=== PATIENT | female | born 1980 | race Caucasian/White ===

== ENCOUNTER 2020-06-09 15:24 | Outpatient (CLI) | payer BC, SELFPAY ==
[2020-06-09 15:45] LABS: Hematocrit 41.6 % (37.0-47.0); Hemoglobin 13.9 g/dL (12.0-15.0)
[2020-06-09 15:59] LABS: Anion Gap 7 mmol/L (8-16); Blood Urea Nitrogen 23 mg/dL (7-17); Calcium 9.2 mg/dL (8.4-10.2); Carbon Dioxide 29 mmol/L (22-30); Chloride 100 mmol/L (98-107); Estimated Glomerular Filt Rate > 60; Glucose 125 mg/dL (65-105); Sodium 136 mmol/L (137-145)
== END 2020-06-09 15:25 | disposition home or self-care (01) ==
PROVIDERS: Anesthesiology; PCP Family Medicine; Visit Provider Obstetrics & Gynecology
DX: Z51.81 Encounter for therapeutic drug level monitoring (principal); N92.6 Irregular menstruation, unspecified
CPT/HCPCS: 36415; 80048; 85014; 85018

== ENCOUNTER 2020-06-16 00:44 | Outpatient (CLI) | payer BC, SELFPAY ==
[2020-06-16 18:38] LABS: SARS-CoV-2 RNA PCR Negative
== END 2020-06-16 00:45 | disposition home or self-care (01) ==
LOC: ANHCOVIDDT 00:45
PROVIDERS: PCP Family Medicine; Visit Provider Obstetrics & Gynecology
DX: Z01.812 Encounter for preprocedural laboratory examination (principal); Z20.828 Contact with and (suspected) exposure to other viral communicable diseases
CPT/HCPCS: 87635; C9803; U0003

== ENCOUNTER 2020-06-18 00:47 | Day surgery (SDC) | payer BC, SELFPAY ==
[2020-06-08 14:52] VITALS: BMI 19.6
--- NOTE | 2020-06-16 09:47 | PM.IMHP ---
H&P: HPI History of Present Illness Date/Time: 06/16/20 09:47 Chief complaint: irregular bleeding Narrative: Matilde Ang is a 39 year old female who is admitted for hysteroscopy dilatation curettage and manner. She has heavy periods with been refractory to medical therapy risks and benefits of the procedure were reviewed. She had all questions answered. She asked to proceed Review of Systems Review of Systems: All systems reviewed & are unremarkable except as noted in HPI and below PMFSH Social History Social History Smoking status: Never smoker Alcohol intake: current Drinks per week: 8 Spiritual care concerns: No Meds Home Medications and Allergies Home Medications Medication Instructions Recorded Confirmed Type norethindrone ac-eth estradiol 1 tablet PO DAILY 06/08/20 06/08/20 History [Microgestin 09/22 (21)] spironolactone 100 mg PO DAILY 06/08/20 06/08/20 History Allergies Allergy/AdvReac Type Severity Reaction Status Date / Time Cephalosporins Allergy Mild Hives Verified 06/08/20 14:54 cefadroxil Allergy Unknown Hives Verified 06/08/20 14:54 Exam Const: General: no acute distress Eyes: General: appearance normal, both eyes and all related structures Neck: Neck: supple and no JVD Thyroid: thyroid normal Resp: Effort & Inspection: normal respiratory effort Auscultation: clear to auscultation bilaterally Cardio: Rate: regular rate Rhythm: regular rhythm GI: Inspection: non-distended GI Palp: Yes Soft to palpation, No Tenderness to palpation present (GI) and No Guarding due to palpation present (GI) Auscultation: normal bowel sounds : General: Yes bladder normal to palpation External Female Exam: normal external appearance Speculum Exam - Vagina: normal vaginal discharge and No vaginal bleeding Speculum Exam - Cervix: nontender Bimanual exam- vagina & uterus: bladder normal to palpation and No Cervical tenderness present OB/external & speculum: No vaginal bleeding Skin: General skin exam: no rashes or lesions noted Extrem: General: normal to inspection and no edema Psych: Mental Status: mental status grossly normal Affect: normal affect Assessment and Plan Additional Plan impression: 6 of heavy bleeding refractory to medical therapy Plan: Hysteroscopy, dilatation curettage, endometrial ablation
--- NOTE | 2020-06-18 06:42 | WPDHPUPDATE1 ---
History and Physical Update Update Date/Time: 06/18/20 06:42 History and Physical has been reviewed, including an updated exam of the patient. There are NO changes in the patient's condition. Risks, benefits, and alternatives have been discussed and questions answered. Patient agrees to proceed with procedure.
[2020-06-18] MEDS: ACETAMINOPHEN 500 MG TABLET 1000 MG PO (07:28)
[2020-06-18] MEDS: LACTATED RINGERS 1,000 ML 30 ML IV CONT ×2 (07:30→09:22)
--- NOTE | 2020-06-18 07:53 | P.PNAN_ITS ---
Anes - Initial Pre Proc Eval Procedure: Operation Date: 06/18/20 09:00 Proposed Procedures p Hysteroscopy, Dilation and Curettage, Cat Endometrial Ablation - Mg Ceja MD Date/Time: 06/18/20 07:53 Surgeon: Mg Ceja MD Pre Op Diagnosis: irregular bleeding Patient Data Age: 39 Gender: F Height: 5 ft 5 in Weight: 52.95 kg Allergies Allergy/AdvReac Type Severity Reaction Status Date / Time Cephalosporins Allergy Mild Hives Verified 06/18/20 07:44 cefadroxil Allergy Unknown Hives Verified 06/18/20 07:44 Home Medications Medication Instructions Recorded Confirmed Type norethindrone ac-eth estradiol 1 tablet PO DAILY 06/08/20 06/08/20 History [Microgestin 09/22 (21)] spironolactone 100 mg PO DAILY 06/08/20 06/08/20 History hydrocodone-acetaminophen 1 tablet PO Q6H PRN #20 tablet 06/18/20 Rx Patient hx anesthesia problems: none Family hx anesthesia problems: none [facility] Surgical History Surgical History (Updated 06/18/20 @ 07:57 by Mg Mock MD) H/O breast augmentation Social History Social History Smoking status: Never smoker Alcohol intake: current Drinks per week: 8 Spiritual care concerns: No Anes - Eval Final PreProcedure Day of Procedure 06/18/20 07:53 Patient weight: normal Heart: regular rate and rhythm Lungs: clear to auscultation Airway: Mallampati scale class 1 Neurological: alert and oriented Last oral intake: >/= 8 hours ASA classification: I Emergent: no Anesthetic plan: proceed Anesthesia type and monitoring: general GIVS and standard monitoring Informed Consent: The patient's anesthetic plan and its attendant risks and benefits were discussed with the patient/family/POA. Questions were solicited and answers provided to the satisfaction of the patient/family/POA.
[2020-06-18] MEDS: KETOROLAC 30 MG/ML VIAL (*BKC) IV PUSH (09:15)
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
[2020-06-18 09:22] VITALS: BP 100/69; PULSE 83; RESP 16; O2SAT 96
--- NOTE | 2020-06-18 09:25 | SUR.OPER ---
Hysteroscopy Intake-100ml Output- 50ml
[2020-06-18] MEDS: ONDANSETRON INJ 4 MG/2 ML VIAL IV PUSH (09:29)
[2020-06-18] MEDS: fentaNYL CITRATE INJ (*CRX) 100 MCG/2 ML VIAL 25 MCG IV PUSH (09:43)
[2020-06-18 09:50] VITALS: BP 105/61; PULSE 86; RESP 18; O2SAT 100
[2020-06-18] MEDS: oxyCODONE HCL (*CRX) 5 MG TAB IR PO (10:02)
[2020-06-18 10:09] VITALS: BP 98/55; PULSE 75; RESP 18; O2SAT 100
== END 2020-06-18 10:40 | disposition home or self-care (01) ==
PROVIDERS: PCP Family Medicine; Visit Provider Obstetrics & Gynecology
PROC: 0U5B8ZZ Destruction of Endometrium, Via Natural or Artificial Opening Endoscopic (ICD-10-PCS; CPT 58563; principal; 2020-06-18 09:00)
DX: N93.9 Abnormal uterine and vaginal bleeding, unspecified (principal)
CPT/HCPCS: 58563; 88305; A9270; J1100; J1885; J2250; J2405; J2704; J3010; J7030; J7120

== ENCOUNTER 2021-07-27 08:27 | Outpatient (CLI) | payer BC, SELFPAY ==
--- NOTE | ~2021-07-27 | MM_ITS ---
EXAMINATION: MM scrn krystle implant BI w martha HISTORY: Screening mammogram TECHNIQUE: Craniocaudal and mediolateral oblique 3-D tomosynthesis images with implant displacement a nd synthetic 2-D images were generated. Craniocaudal and mediolateral oblique views of the breasts wi thout implant displacement were obtained using full field digital mammography. CAD analysis was submi tted and interpreted. COMPARISON: None, baseline BREAST PARENCHYMAL COMPOSITION: The breasts are heterogeneously dense, which may obscure small masses . FINDINGS: RIGHT BREAST: There is no evidence of suspicious mass, calcification, or architectural distortion to suggest malignancy. LEFT BREAST: An asymmetry is present in the subareolar aspect of the breast on the implant displaced mediolateral oblique view. IMPRESSION: 1. Left breast asymmetry. 2. Additional mammographic views and possible breast ultrasound are recommended. BI-RADS Category 0: Incomplete: Needs additional imaging evaluation. Reviewed, dictated and finalized at location A. SIT SPECIALIST IMPRESSION: 1. Left breast asymmetry. 2. Additional mammographic views and possible breast ultrasound are recommended . BI-RADS Category 0: Incomplete: Needs additional imaging evaluation.
== END 2021-07-27 08:28 | disposition home or self-care (01) ==
LOC: ANHIMG 08:29
PROVIDERS: PCP Nurse Practitioner Family; Visit Provider Obstetrics & Gynecology
DX: Z12.31 Encounter for screening mammogram for malignant neoplasm of breast (principal); R92.8 Other abnormal and inconclusive findings on diagnostic imaging of breast
CPT/HCPCS: 77063; 77067

== ENCOUNTER 2021-08-12 13:17 | Outpatient (CLI) | payer BC, SELFPAY ==
--- NOTE | ~2021-08-12 | US_ITS ---
CORRECTED REPORT MM diag krystle implant LT w martha added to report. 08/15/2021 EXAMINATION: US breast LT limited, MM diag krystle implant LT w martha HISTORY: Follow-up left breast asymmetry TECHNIQUE: Additional 3-D tomosynthesis images of the left breast were performed and synthetic 2-D images were generated. CAD analysis was submitted and interpreted. High resolution Limited left breast ultrasound was performed. COMPARISON: 07/27/2021 BREAST PARENCHYMAL COMPOSITION: Breast composed of scattered areas of fibroglandular density FINDINGS: MAMMOGRAPHIC FINDINGS: There are no suspicious masses, calcifications or architectural distortion in the left breast to suggest malignancy. ULTRASOUND: Limited left breast ultrasound: Normal heterogeneous echotexture without focal mass. IMPRESSION: 1. No evidence for malignancy in the left breast. 2. Routine yearly screening mammogram and regular clinical breast examination are recommended. BI-RADS Category 1: Negative Reviewed, dictated and finalized at location A. EL MECHANIC MTDD IMPRESSION: 1. No evidence for malignancy in the left breast. 2. Routine yearly screening mammogram and regular clinical breast examination a re recommended. BI-RADS Category 1: Negative
== END 2021-08-12 13:18 | disposition home or self-care (01) ==
LOC: ANHIMG 13:18
PROVIDERS: PCP Nurse Practitioner Family; Visit Provider Obstetrics & Gynecology
DX: R92.8 Other abnormal and inconclusive findings on diagnostic imaging of breast (principal)
CPT/HCPCS: 76642; 77061; 77065; G0279

== ENCOUNTER 2022-08-29 08:55 | Outpatient (CLI) | payer BC, SELFPAY ==
--- NOTE | ~2022-08-29 | MM_ITS ---
EXAMINATION: MM scrn krystle implant BI w martha HISTORY: Screening mammogram TECHNIQUE: Craniocaudal and mediolateral oblique 3-D tomosynthesis images with implant displacement a nd synthetic 2-D images were generated. Craniocaudal and mediolateral oblique views of the breasts wi thout implant displacement were obtained using full field digital mammography. CAD analysis was submi tted and interpreted. COMPARISON: 08/12/2021 diagnostic left mammogram and limited left breast ultrasound 07/23/2021 bilateral implant screening mammogram BREAST PARENCHYMAL COMPOSITION: The breasts are heterogeneously dense, which may obscure small masses . FINDINGS: Status post bilateral augmentation mammoplasty. There is no evidence of suspicious mass, ca lcification, or architectural distortion to suggest malignancy in either breast. There has been no lane spicious interval change. IMPRESSION: 1. No mammographic evidence of malignancy. 2. Recommend routine screening mammography in one year. BI-RADS Category 1: Negative Reviewed, dictated and finalized at location A. O EXPERIENCE EXPERT
== END 2022-08-29 08:56 | disposition home or self-care (01) ==
PROVIDERS: PCP Nurse Practitioner Family; Visit Provider Obstetrics & Gynecology
DX: Z12.31 Encounter for screening mammogram for malignant neoplasm of breast (principal)
CPT/HCPCS: 77063; 77067

== ENCOUNTER 2023-10-19 07:33 | Outpatient (CLI) | payer BC, SELFPAY ==
--- NOTE | ~2023-10-19 | MM_ITS ---
EXAMINATION: MM scrn krystle implant BI w martha HISTORY: Screening mammogram TECHNIQUE: Craniocaudal and mediolateral oblique 3-D tomosynthesis images with implant displacement a nd synthetic 2-D images were generated. Craniocaudal and mediolateral oblique views of the breasts wi thout implant displacement were obtained using full field digital mammography. CAD analysis was submi tted and interpreted. COMPARISON: 08/29/2022 bilateral implant screening mammogram 08/12/2021 diagnostic left implant mammogram and limited left breast ultrasound, reported negative 07/23/2021 bilateral implant screening mammogram BREAST PARENCHYMAL COMPOSITION: The breasts are heterogeneously dense, which may obscure small masses . FINDINGS: Status post bilateral augmentation mammoplasty. There is no evidence of suspicious mass, ca lcification, or architectural distortion to suggest malignancy in either breast. There has been no lane spicious interval change. IMPRESSION: 1. No mammographic evidence of malignancy. 2. Recommend routine screening mammography in one year. BI-RADS Category 1: Negative Reviewed, dictated and finalized at location B. MER MACHINE
== END 2023-10-19 07:34 | disposition home or self-care (01) ==
LOC: ANHIMG 07:36
PROVIDERS: PCP Nurse Practitioner Family; Visit Provider Obstetrics & Gynecology
DX: Z12.31 Encounter for screening mammogram for malignant neoplasm of breast (principal)
CPT/HCPCS: 77063; 77067

== ENCOUNTER 2023-10-20 14:41 | Emergency (ER) | payer BC, SELFPAY ==
[2023-10-20 14:51] VITALS: BP 114/64; PULSE 85; RESP 20; TEMP 36.7; O2SAT 97
--- NOTE | 2023-10-20 14:56 | ED.URI ---
HPI - URI/Sore Throat General Chief Complaint: Upper Respiratory Infection Stated Complaint: sorethroat Time Seen by Provider: 10/20/23 15:05 History of Present Illness HPI Narrative: 43 y/o female presented for c/o sore throat today. States she completed a course of abx starting 10/05/23 for strep. Denies any associated symptoms. States she is planning to be around people tonight and wants to know if she has strep again. Related Data Home Medications Medication Instructions Recorded Confirmed norethindrone acetate 1 mg-ethinyl 1 tablet PO DAILY 06/08/20 06/08/20 estradiol 20 mcg tablet (Microgestin) spironolactone 50 mg tablet 100 mg PO DAILY 06/08/20 06/08/20 Allergies Allergy/AdvReac Type Severity Reaction Status Date / Time Cephalosporins Allergy Mild Hives Verified 06/18/20 07:44 cefadroxil Allergy Unknown Hives Verified 06/18/20 07:44 Review of Systems Review of Systems: CONSTITUTIONAL: Denies body aches, fever, chills, or sweats. EYES: Denies visual changes, redness, or discharge. ENT: reports sore throat Denies rhinorrhea, congestion, or otalgia. CARDIOVASCULAR: Denies chest pain, palpitations, or edema. RESPIRATORY: Denies dyspnea. GASTROINTESTINAL: Denies abdominal pain, nausea, vomiting, or diarrhea. SKIN: Denies rash, itching, or wounds. MUSCULOSKELETAL: Denies back pain, joint pain, or myalgia. NEUROLOGIC: Denies headache [facility], [facility] Surgical History Surgical History H/O breast augmentation Social History Social History Smoking status: Never smoker Alcohol intake: current Drinks per week: 8 Spiritual care concerns: No Exam Narrative: GENERAL: well-appearing, no acute distress. EYES: conjunctivae clear ENT: Mucous membranes moist. TMs pearly thomson with normal light reflex bilaterally; no tragal tenderness. Oropharynx erythematous without lesions. Tonsils not enlarged and without exudate. No drooling, no hoarseness, no trismus, uvula midline. No tripod positioning, hot potato voice, or soft palate swelling. NECK: Supple. No lymphadenopathy CHEST: Clear to auscultation, breath sounds equal. No respiratory distress, speaks in full sentences. HEART: Regular rate and rhythm. No murmur heard. SKIN: Warm, dry, no rash. NEURO: Alert and oriented x3. Course Course Emergency Course: Patient is aware of diagnosis, understands and agrees to treatment plan. Anticipatory guidance given. Patient agrees to follow-up as directed and is aware of reasons to seek care at the emergency department. Portions of this record may have been created with voice recognition software Level of Care: Express Care Visit MDM - URI/Sore Throat MDM Narrative Medical decision making narrative: Neg strep result reviewed with pt. Advise supportive treatments. Patient is appropriate for outpatient treatment and follow-up. Differential Diagnosis Differential diagnosis: Likely upper respiratory infection, viral infection and pharyngitis Discharge Plan Discharge Clinical Impression: Pharyngitis Patient Disposition: Home, Self-Care Condition: Stable Instructions: Antibiotic Form, Pharyngitis (ED) Additional Instructions: Rapid strep swab was negative today You will be notified in a few days if the culture comes back positive for strep, and appropriate antibiotics will be called in at that time. if symptoms are due to a viral illness, it is not treated with antibiotics. Viral symptoms can be present for up to 10-14 days. Tylenol every 8 hours as needed for pain/fever Soft foods, cool liquids, warm tea. Gargle with warm saltwater twice a day. Chloraseptic spray and throat lozenges. Rest and stay hydrated. --Follow up with your PCP --Go to the ER immediately if you cannot swallow your saliva, trouble breathing/wheezing, throat swelling, pain is persistent and severe Prescrip
== END 2023-10-20 15:11 | disposition home or self-care (01) ==
PROVIDERS: Emergency Provider Nurse Practitioner Family; PCP Nurse Practitioner Family
DX: J02.9 Acute pharyngitis, unspecified (principal)
CPT/HCPCS: 87081; 87880; 99213; G0463

== ENCOUNTER 2024-11-10 15:34 | Outpatient (CLI) | payer BC, SELFPAY ==
--- NOTE | ~2024-11-10 | MM_ITS ---
EXAMINATION: MM scrn krystle implant BI w martha HISTORY: Screening mammogram TECHNIQUE: Craniocaudal and mediolateral oblique 3-D tomosynthesis images with implant displacement a nd synthetic 2-D images were generated. Craniocaudal and mediolateral oblique views of the breasts wi thout implant displacement were obtained using full field digital mammography. CAD analysis was submi tted and interpreted. COMPARISON: 10/19/2023, 08/29/2022, 07/27/2021 BREAST PARENCHYMAL COMPOSITION: The breasts are heterogeneously dense, which may obscure small masses . FINDINGS: There is no evidence of suspicious mass, calcification, or architectural distortion to sugg est malignancy in either breast. There has been no suspicious interval change. IMPRESSION: No mammographic evidence of malignancy. Recommend routine screening mammography in one year. BI-RADS Category 1: Negative Reviewed, dictated and finalized at [facility].
--- OUTSIDE RECORDS SUMMARY | 2024-11-10 18:14 | XMS_ITS | Referral Summary ---
Author Organization [facility] Address [address] [place] [address] Care Team Providers Care Traveling Passenger Agent Name Role Phone Carroll Killian MD Primary Care Provider [phone] Source Comments [facility],non-owned Affiliates and Associated Physician Practices is amultiple site organization consisting of ambulatory clinics and hospital sitesin [place], [place], [place] and [place]. This disclosure is being madepursuant to the Care Everywhere program and may not contain all information available regarding this patient. Last updated 18.[facility] Social History Tobacco Use Types Packs/Day Years Used Date Smoking Tobacco: Never Assessed Sex and Gender Information Value Date Recorded Sex Assigned at Not on file Gender Identity Not on file Sexual Orientation Not on file Plan of Treatment Not on file Care Teams Traveling Passenger Agent Relationship Specialty Start Date End Date Carroll Killian MD [address] [place] [address] PCP - General 12/19/16
--- OUTSIDE RECORDS SUMMARY | 2024-11-10 18:14 | XMS_ITS | Data Portability ---
Author Organization [facility], Main Office Address [address] [place] [address] Assessment Encounter Date Assessment Date Assessment LastModified by Organization Details LastModified Time 03/14/2023 03/14/2023 Cscope- age 46 Mammogram- ordered by AUDIO INSTALLER WWE- AUDIO INSTALLER- Felicita Guo Call office if worse, ER if life threatening illness RTC 1 year and PRN She voices understanding of plan and agrees Not available 03/13/2023 19:32:18 Plan of Treatment Reminders Order Date Submit Date Provider Last Modified By Organization Details Last Modified Time Details Appointments None recorded. Lab lipid panel, serum 2022 023 [facility], 2022 [address], [address], [place], [address], 3 13:12:54 HbA1c (hemoglobin A1c), blood 2022 023 [facility], 2022 Aman Gonzalez, [address], [place], [address], 3 13:12:54 CBC w/ auto diff 2022 023 [facility], 2022 Aman Gonzalez, [address], [place], [address], 3 13:12:54 CMP, serum or plasma 2022 023 [facility], 2022 Aman Gonzalez, [address], [place], [address], 3 13:12:54 Referral None recorded. Procedures None recorded. Surgeries None recorded. Imaging None recorded. Medication Orders ciprofloxac in 500 mg tablet 2022 023 [id number], [address] [facility], [place], [place], [id number], 11:00:33 Patient TargetsNo targets recorded. Patient InstructionsNo instructions recorded. Reason for Referral None Reported. Results Created Date Observation Date Name Description Value Unit Range Abnormal Flag Note LastModifiedBy Organization Detail LastModifiedTime 07/27/20 21 07/27/2021 MAMMO , scree kevin, digit al, bilat eral No observ ation record ed. [id number] [place] [address], [address], 11/01/2022 23:12:04 08/12/20 21 08/12/2021 , natalya medellin No observ ation record ed. [id number] [place] [address], [place], [address], 11/01/2022 23:12:04 08/17/20 21 08/12/2021 , natalya medellin No observ ation record ed. [email or web address].[id number] [place] [address], [place], [address], 11/01/2022 23:12:04 08/29/20 22 08/29/2022 MAMMO , scree kevin, digit al, bilat eral No observ ation record ed. MIGRATION.[id number] [place] [address], [address], 11/01/2022 23:12:04 10/19/19 24 10/19/2023 MAMMO , scree kevin, digit al, bilat eral No observ ation record ed. [email or web address] [address], [address], 12/13/2023 09:28:55 Result Notes None recorded. Problems Name Problem SNOMED Code Status Onset Date Resolution Date Notes Provider Name and Address Organization Details Recorded Time Acne [id number] Active 03/13/20 FRANCISCO Laird [address] [facility], [address], [place], [address], [place] [facility] 03/13/2023 19:31:52 Problem Notes None recorded. Procedures Surgical History Date Name Laterality Status Provider Name and Address Organization Details Recorded Time augmentation mammoplasty completed Not Available [facility] 11/01/2022 23:05:33 Imaging Results Imaging Date Name Status LastModified by Organiz ation Details LastModified Time 08/29/2022 MAMMO, screening, digital, bilateral completed [id number] [address], [address], 11/01/2022 23:12:04 07/27/2021 MAMMO, screening, digital, bilateral completed [id number] [address], [address], 11/01/2022 23:12:04 08/12/2021 US, breast completed MIGRATION.[id number] [address] [place] [address], [address], 11/01/2022 23:12:04 08/12/2021 US, breast completed MIGRATION.[id number] [address] [place] [address], [address], 11/01/2022 23:12:04 10/19/2023 MAMMO, screening, digital, bilateral completed [email or web address] [address] [place] [address], [address], 12/13/2023 09:28:55 Procedure Notes None recorded. Medical Equipment None Reported. Medications Name Sig Start Date Stop Date Status Note LastModified by Organization Details LastModified Time binaxnow cov kit home kehinde 03/14 completed Not Available Not Available Not Available ciprofloxac in 500 mg tablet TAKE 1 TABLET BY MOUTH EVERY 12 HOURS FOR 7 DAYS active Not Available Not Available No t Available spironolact one 50 mg tablet TAKE 2 TABLETS BY MOUTH DAILY active Not Available Not Available No t Available Microgestin 09/22 (21) 1 mg-20 mcg tablet TK 1 T PO QD 03/02 completed Not Available Not Available Not Available hydrocodone 5 mg-acetamin ophen 300 mg tablet TK 1 T PO Q 6 H PRN 03/02 completed Not Available Not Available Not Available BinaxNOW COVID-19 Ag Self Test kit TEST DIRECTED TODAY 03/14 completed Not Available Not Available Not Available Vitals Date Recorded Body mass index (BMI) Body height Oxygen saturation Oxygen saturation in Arterial blood by Pulse oximetry Heart rate Body temperature Body weight Systolic blood pressure Diastolic blood pressure Provider Name and Address Organization Details Last Updated DateTime 1 21.3 kg/m2 162.56 cm 96 % 96 % 67 /min 98.5 [degF] 31391.4 5 g 100 mm[Hg] 60 mm[Hg] Not Available [facility] 3 23:06:42 Date Recorded Body mass index (BMI) Body height Oxygen saturation Oxygen saturation in Arterial blood by Pulse oximetry Heart rate Body temperature Body weight Systolic blood pressure Diastolic blood pressure Provider Name and Address Organization Details Last Updated DateTime 2 21.3 kg/m2 162.56 cm 98 % 98 % 70 /min 97.6 [degF] 01243.4 5 g 116 mm[Hg] 72 mm[Hg] Not Available [facility] 3 23:06:42 Date Recorded Body weight Body mass index (BMI) Body height Body temperature Heart rate Oxygen saturation Oxygen saturation in Arterial blood by Pulse oximetry Systolic blood pressure Diastolic blood pressure Provider Name and Address Organization Details Last Updated DateTime 3 41513.2 3 g 21.8 kg/m2 162.56 cm 97.8 [degF] 68 /min 98 % 98 % 118 mm[Hg] 74 mm[Hg] Abena Armas, MAXWELL MALDONADO - Aubree MA [employer] 3 10:36:56 Social History Question Answer Notes LastModified by Organizat ion Details LastModified Time Tobacco Smoking Status Never Smoker Not Available [facility] 11/01/2022 23:05:03 Do You Have An Advance Directive? Yes [id number].70425 [id number] Information not available 11/01/2022 What Is Your Level Of Alcohol Consumption? Occasional MIGRATION.15200 97415 Information not available 11/01/2022 Do You Wear A Helmet When Biking? No MIGRATION.76987 54259 Information not available 11/01/2022 What Is Your Level Of Caffeine Consumption? Occasional MIGRATION.13418 65787 Information not available 11/01/2022 How Much Tobacco Do You Chew? None MIGRATION.00275 68197 Information not available 11/01/2022 In The 14 Days Before Symptom Onset, Have You Had Close Contact With A Laboratory-confi rmed COVID-19 While That Case Was Ill? No MIGRATION.92765 10338 Information not available 11/01/2022 In The 14 Days Before Symptom Onset, Have You Had Close Contact With A Person Who Is Under Investigation For COVID-19 While That Person Was Ill? No MIGRATION.57235 93076 Information not available 11/01/2022 What Type Of Diet Are You Following? REGULAR MIGRATION.49955 23674 Information not available 11/01/2022 Which Illicit Or Recreational Drugs Have You Used? None MIGRATION.97695 10353 Information not available 11/01/2022 Do You Or Have You Ever Used E-cigarettes Or Vape? 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 No MIGRATION.50809 69845 Information not available 11/01/2022 What Is The Fluoride Status Of Your Home? Unknown MIGRATION.20311 16734 Information not available 11/01/2022 Are There Any Guns Present In Your Home? Yes MIGRATION.10078 93340 Information not available 11/01/2022 Do You Use Insect Repellent Routinely? Yes MIGRATION.80924 34884 Information not available 11/01/2022 Where Do You Live? [place]House MIGRATION.78592 58712 Information not available 11/01/2022 What Was The Date Of Your Most Recent Tobacco Screening? 03/14/2023 [email or web address] Information not available 03/14/2023 Do You Have Any Pets? No MIGRATION.16703 53946 Information not available 11/01/2022 Do You Use Your Seat Belt Or Car Seat Routinely? Yes MIGRATION.79397 63287 Information not available 11/01/2022 Do You Have Smoke And Carbon Monoxide Detectors In Your Home? Yes MIGRATION.81188 70660 Information not available 11/01/2022 Are You Passively Exposed To Smoke? No MIGRATION.70672 94053 Information not available 11/01/2022 Do You Or Have You Ever Used Smokeless Tobacco? Never Used Smokeless Tobacco MIGRATION.76166 66081 Information not available 11/01/2022 Are There Any Smokers In Your House? No MIGRATION.58326 11760 Information not available 11/01/2022 How Much Tobacco Do You Smoke? No MIGRATION.99567 37501 Information not available 11/01/2022 Do You Feel Stressed (tense, Restless, Nervous, Or Anxious, Or Unable To Sleep At Night)? [id number] MIGRATION.46461 30511 Information not available 11/01/2022 Do You Use Any Illicit Or Recreational Drugs? No MIGRATION.78477 43902 Information not available 11/01/2022 Do You Use Sunscreen Routinely? Yes MIGRATION.47937 98182 Information not available 11/01/2022 Have You Recently Traveled Abroad? No MIGRATION.40110 88342 Information not available 11/01/2022 Sex: Unknown Functional Status Question Answer Note LastModified by [employer] ion Details LastModified Time What is your exercise level? Occasional [id number] 26 Information not available 11/01/2022 Mental Status None recorded. Family History Relationship Description Onset Age of this Age Resolved Age Notes LastModified by Organization Details LastModified Time Father No current problems or disability [id number] Not available 11/01/2022 23:05:36 Mother No current problems or disability MIGRATION.[id number] Not available 11/01/2022 23:05:36 Medical History Condition Response NERVE DISEASE N BLINDNESS N RHEUMATIC FEVER N KIDNEY STONES N BLADDER PROBLEMS N MRSA N OTHER # 1 N POLIO N LUNG DISEASE/DISORDER N COPD N RADIATION / CHEMOTHERAPY N Other # 2 N BLOOD DISEASES N EAR OR HEARING PROBLEMS N MUMPS N BOWEL PROBLEMS N DEPRESSION (INCLUDING POST ) N STROKE/TIA N ULCERS N BENIGN PROSTATIC HYPERPLASIA N MEASLES N MYOCARDIAL INFARCTION N OBESITY N GERD/NAUSEA N ANEURYSM N URINARY/BLADDER/KIDNEY PROBLEMS N CORONARY ARTERY DISEASE (CAD) N ADDICTION CONCERNS N ENDOMETRIOSIS N Impotence N USE OF BLOOD THINNERS N SKIN PROBLEMS N GASTROINTESTINAL DISORDER N PERIPHERAL VASCULAR DISEASE N MUSCLE,JOINT OR BONE PROBLEMS N GASTROINTESTINAL BLEEDING N BLOOD CLOTS N ASTHMA N CATARACTS N ERECTILE DYSFUNCTION N VARICOSITIES N GI PROBLEMS N Low Testosterone N INFERTILITY N AIDS/HIV N CHEMOTHERAPY / RADIATION N LIVER DISEASE N MALE HYPOGONADISM N HYPERTENSION N Deficiency N TOURETTE'S N ANXIETY DISORDER N BLOOD TRANSFUSION N ANEMIA/BLOOD DISORDER N CHRONIC EAR INFECTIONS N BRONCHITIS N TUBERCULOSIS N GLAUCOMA N FOOT PROBLEM N DIVERTICULITIS N SLEEP APNEA N CHICKENPOX N INFECTIOUS DISEASE N HEART ARRHYTHMIA N PROSTATE N INSOMNIA N HIGH CHOLESTEROL / HYPERLIPIDEMIA N HYPERTHYROIDISM N EYE PROBLEMS N EDEMA N CHRONIC PAIN SYNDROME N HYPOTHYROIDISM N CAROTID BLOCKAGE N CONSTIPATION N BACK / NECK PROBLEMS N HAVE YOU BEEN HOSPITALIZED OR SEEN IN [facility] ER IN THE PAST YEAR ? N ATHEROSCLEROSIS N BREAST PROBLEMS N DIALYSIS N ECZEMA N OSTEOPOROSIS N ARTHRITIS N NO SIGNIFICANT PAST MEDICAL HISTORY N APPENDICITIS N DIABETES, TYPE N BAD TEETH N ENT N HEARTBURN / REFLUX N AUTISM SPECTRUM DISORDER (ASD) N HEPATITIS / LIVER DISEASE N GOUT N SLEEP DISORDER N ALZHEIMER'S DISEASE N Brain Problems N HERPES N DEMENTIA N HEADACHES/MIGRAINES N SEIZURES/EPILEPSY N VASCULAR DISEASE N PACEMAKER N Blood Disorder N DIZZINESS N HEART DISEASE/HEART PROBLEMS N KIDNEY DISEASE N MULTIPLE SCLEROSIS N CARDIAC ARRHYTHMIA N CANCER: SPECIFY N ATRIAL FIBRILLATION N Gall Stones N PULMONARY EMBOLISM N AUTOIMMUNE DISEASE N Gynecological History Statement/Question Response Menses Monthly Y Current Control Method Partner Vas ectomy Age at Menarche 14 Date of LMP 02/21/2021 Obstetrics History GPAL:G 2 P 0 2 0 2 Type Value Multiple Births 0 Premature 2 Living 2 Total 2 Past Encounters Encounter ID Performer Location Encounter Start Date Encounter Closed Date Diagnosis/Indication Diagnosis SNOMED-CT Code Diagnosis ICD10 Code Diagnosis Note [id number] [facility] [place] [address] 03/02/2021 00:00:00 03/02/2021 13:25:52 [id number] [facility] Internal Med [address] [place] [address] 03/08/2022 00:00:00 03/08/2022 14:14:01 [id number] FRANCISCO Laird [facility] Internal Med [address] [place] [address] 03/14/2023 10:29:32 03/14/2023 11:01:08 Adult health examination 585163665 Z00.00 Acne 81698845 L70.9 follows dermatolog y- Dr. Linda Kramer spironolahawk tone Diabetes m ellitus screening 781909822 Z13.1 Cholesterol screening 27 2325301 Z13.220 Depression screening 171 628499 Z13.31 Travel 235788818 Z76.89 will give her a script of cipro in case she needs it for diarrhea while traveling Health Concerns Section Related Observation LastModified by Organization Detai ls LastModified Time None Recorded Concern Status LastModified by Organization Details LastModified Time None Recorded Advance Directives Directive Y: Payers Encounter Date Sequence Insurance Name Policy Number Policy Barclay Covered Member ID Barclay Member ID Guarantor Name 03/14/2023 1 [place] [id number] Dima Ang [id number] Matilde Ashia Notes Date Note Type Note Provider Name and Address Organization Details Recorded Time 03/14/2023 text/html Matilde presents today for annual wellness exam. Overall she feels well and denies any complaints. She is traveling to [place] in a couple of weeks, last time she was there she did get some travelers diarrhea, is requesting a script to take with her. She report this is an all inclusive trip so she will be drinking alcohol during her trip. Carolyn Ellis, DIRECTOR ENGINEERING-C [address] [facility], [place], [address], [facility] Voice Assist 03/14/2023 11:17:35 OBGyn Episode No OBEpisode recorded.
--- OUTSIDE RECORDS SUMMARY | 2024-11-10 18:14 | XMS_ITS | Referral Summary ---
Author Organization [facility] [address] [facility] Address [address] [place] [address] Care Team Providers Care Presser All Around Name Role Phone Carolyn Ellis NP Primary Care Provider [phone] Allergies Active Allergy Reactions Criticality Noted Date Comments Cefadroxil Rash Medium 10/31/2023 Medications spironolactone (ALDACTONE) 50 mg tablet Take 2 tablets (100 mg total) by mouth daily 07/15/2023 Active lidocaine viscous (XYLOCAINE) 2 % solutionIndicat ions:gargle 5 ml PO every 6 hours for throat pain Apply to lesions every six hours as needed for discomfort. Do not exceed maximum dose of of 4 times daily. 100 mL 10/29/2023 Active Active Problems Problem Noted Date Diagnosed Date Strep pharyngitis 10/05/2023 Assessment & Plan (10/05/2023 8:53 AM RAW STOCK DYEING MACHINE TENDER): VSS, NAD, lungs ctab Hx of recurrent strep when younger Rapid strep + Rapid covid, flu negative Symptom duration last night Augmentin Warm salt water gargles Tylenol (acetaminophen) or Advil/Motin (ibuprofen) as needed per package directions for aches/pains. CDC recommendations for return to work/school: at least 12 hours on antibiotics and no fever Change your toothbrush on the third day you are on antibiotics. Avoid sharing food/drinks and close contact until you are less contagious. Frequent warm or cool liquids can be soothing. Try soups or popsicles for comfort. If you are not improving or worsening in the next 3-5 days you must RETURN to the clinic, go to your PCP, or Urgent Care/ER to be SEEN and reevaluated. No further prescriptions or refills will be given by phone without another evaluation. Acne 03/13/2023 Social History Tobacco Use Types Packs/Day Years Used Date Smoking Tobacco: Never Assessed Comments Unknown Sex and Gender Information Value Date Recorded Sex Assigned at Not on file Legal Sex Female 8:08 AM RAW STOCK DYEING MACHINE TENDER Gender Identity Not on file Sexual Orientation Not on file Last Filed Vital Signs Vital Sign Reading Time Taken Comments Blood Pressure 96/58 10/29/2023 7:32 PM RAW STOCK DYEING MACHINE TENDER Pulse 101 10/29/2023 7:43 PM RAW STOCK DYEING MACHINE TENDER Temperature 38 C (100.4 F) 10/29/2023 7:32 PM RAW STOCK DYEING MACHINE TENDER Respiratory Rate 20 10/29/2023 7:32 PM RAW STOCK DYEING MACHINE TENDER Oxygen Saturation 97% 10/29/2023 7:43 PM RAW STOCK DYEING MACHINE TENDER Inhaled Oxygen Concentration - - Weight 56.7 kg (125 lb) 10/29/2023 7:32 PM RAW STOCK DYEING MACHINE TENDER Height 165.1 cm (5' 5 ) 10/29/2023 7:32 PM RAW STOCK DYEING MACHINE TENDER Body Mass Index 20.8 10/29/2023 7:32 PM RAW STOCK DYEING MACHINE TENDER Plan of Treatment Not on file Insurance [facility] Care Teams Presser All Around Relationship Specialty Start Date End Date Carolyn Ellis NP PCP - General Nurse Practitioner 10/05/23
--- OUTSIDE RECORDS SUMMARY | 2024-11-10 18:14 | XMS_ITS | Encounter Summary ---
Author Organization [facility] Address [address] [place] [address] Care Team Providers Care Housekeeping Manager Name Role Phone Carroll Killian MD Primary Care Provider [phone] Encounter Details Date Type Department Care Team (Late st Contact Info) Description 02/27/2019 Lab Requisition [facility] [address] [facility] [place] [address] Linda Mani MD [address] [facility] [address] [place] [address] Social History Tobacco Use Types Packs/Day Years Used Date Smoking Tobacco: Never Assessed Sex and Gender Information Value Date Recorded Sex Assigned at Not on file Gender Identity Not on file Sexual Orientation Not on file documented as of this encounter Plan of Treatment Not on file documented as of this encounter Procedures Procedure Name Priority Date/Time Associated Diagnosis Comments DERMATOPATHOLOGY Routine 02/26/2019 12:0 0 AM CDT documented in this encounter Results * DERMATOPATHOLOGY (02/26/2019 12:00 AM CDT) Case Report Dermatopathology Report Case: [id number] Authorizing Provider: Linda Main MD Collected: 02/26/2019 12:00 AM Pathologist: Nathaly Kemp MD Received: 02/27/2019 07:21 AM Specimen: Skin, right back 9 1:40 PM CDT DERMATOPATHOLOGY LABORATORY Final Diagnosis Specimen A. SKIN, right back: LENTIGINOUS MELANOCYTIC NEVUS, COMPOUND TYPE, IRRITATED (COMPOUND MELANOCYTIC NEVUS WITH ARCHITECTURAL DISORDER) (D22.5) 9 1:40 PM CDT DERMATOPATHOLOGY LABORATORY Clinical History R/O Dexter nevus R/O atypia, irregular color 1:40 PM CDT DERMATOPATHOLOGY LABORATORY Gross Description Specimen A: Received is one formalin filled container labeled with the patient's name and designated right back. The specimen consists of a shave biopsy measuring 8x7x1 mm. Jar 0. 1:40 PM CDT DERMATOPATHOLOGY LABORATORY Microscopic Description Specimen A. SKIN, right back: This is a compound nevus. There is melanin pigment in the stratum corneum. There is architectural disorder characterized by a lentiginous proliferation of melanocytes between irregular nevus nests of cells along the dermal epidermal junction. There is underlying fibroplasia of the papillary dermis. The intradermal component is bland in appearance and matures with depth. (Compound Jose's Nevus or Compound Dysplastic Nevus) 1:40 PM CDT DERMATOPATHOLOGY LABORATORY Disclaimer An external and internal positive and negative controls are appropriate for the histochemical, immunohistochemical and immunofluorescence stain(s) in this case (if any), except where stated explicitly. The performance characteristics of the stain(s) cited in this report were developed and its performance characteristic determined by the Dermatopathology Laboratory at [facility], directed by Dr. Tino Kemp. These tests need not be, and therefore are not, approved by the [place] Food and Drug Administration. The tests are used for clinical purposes. Billing Codes Specimen Charges Stain Charges 41632 1 1:40 PM CDT DERMATOPATHOLOGY LABORATORY Embedded Images 1:40 PM CDT DERMATOPATHOLOGY LABORATORY Pathology/Cytolog y TISSUE SPECIMEN FROM SKIN / Unknown 02/26/2019 02/27/2019 7:21 AM CDT Linda Main MD LAB - PATHOLOGY/CYTO LOGY ORDERABLES DERMATOPATHOLOGY LABORATORY [facility] - Department of Dermatology [facility] [facility] 5th [address] [place], [place] [id number] [place] [address] documented in this encounter Visit Diagnoses Not on filedocumented in this encounter Care Teams Housekeeping Manager Relationship Specialty Start Date End Date Carroll Killian MD [address] [place] [address] PCP - General 12/19/16 documented as of this encounter
--- OUTSIDE RECORDS SUMMARY | 2024-11-10 18:14 | XMS_ITS | Clinical Summary ---
Author Organization [facility] Address [address] [facility] [place] [address] Care Team Providers Care Occupational Therapist Assistants Name Role Phone Carroll Killian MD Primary Care Provider [phone] Source Comments [facility],non-owned Affiliates and Associated Physician Practices is amultiple site organization consisting of ambulatory clinics and hospital sitesin [place], [place], [place] and [place]. This disclosure is being madepursuant to the Care Everywhere program and may not contain all information available regarding this patient. Last updated 18.[facility] docplanner Social History Tobacco Use Types Packs/Day Years Used Date Smoking Tobacco: Never Assessed Sex and Gender Information Value Date Recorded Sex Assigned at Not on file Gender Identity Not on file Sexual Orientation Not on file Plan of Treatment Health Maintenance Due Date Last Done Comments LIPID TESTING 1981 MAMMOGRAM 1981 PAP SMEAR 1981 HIV SCREENING 1996 HEPATITIS C SCREENING 07/04/1999 DTAP/TDAP/TD VACCINES (1 - Tdap) 2000 HEPATITIS B VACCINE (1 of 3 - 19+ 3-dose series) 2000 COVID-19 VACCINE (2023-2 5 season) 2024 INFLUENZA VACCINE (#1) 2024 DEPRESSION SCREENING 09/03/2024 ZOSTER VACCINE (1 of 2) 2031 HIB VACCINE Aged Out No longer eligi ble based on patient's age to complete this topic HPV VACCINE Aged Out No longer eligi ble based on patient's age to complete this topic MENINGOCOCCAL (Group B) VACCINE Aged Out No longer eligible based on patient's age to complete this topic MENINGOCOCCAL VACCINE Aged Out No jaxson tracy eligible based on patient's age to complete this topic PNEUMOCOCCAL VACCINE Aged Out No long er eligible based on patient's age to complete this topic Care Teams Occupational Therapist Assistants Relationship Specialty Start Date End Date Carroll Killian MD [address] [place] [address] PCP - General 12/19/16
--- OUTSIDE RECORDS SUMMARY | 2024-11-10 18:14 | XMS_ITS | Patient Health Summary ---
Author Organization [facility] Address [address] [place] [address] Care Team Providers Care Scrubber System Attendant Name Role Phone Carroll Killian MD Primary Care Provider [phone] Note from [facility],non-owned Affiliates and Associated Physician Practices is amultiple site organization consisting of ambulatory clinics and hospital sitesin [place], [place], [place] and [place]. This disclosure is being madepursuant to the Care Everywhere program and may not contain all information available regarding this patient. Last updated 18.[facility] Social History Tobacco Use Types Packs/Day Years Used Date Smoking Tobacco: Never Assessed Sex and Gender Information Value Date Recorded Sex Assigned at Not on file Gender Identity Not on file Sexual Orientation Not on file Procedures * DERMATOPATHOLOGY(Performed 08/03/2021) * DERMATOPATHOLOGY(Performed 02/26/2019) * DERMATOPATHOLOGY(Performed 08/29/2017) * DERMATOPATHOLOGY(Performed 12/18/2016) Results * DERMATOPATHOLOGY (08/03/2021 12:00 AM PICK UP TRUCK DRIVER) Only the most recent of4 resultswithin the time period is included. Case Report Dermatopathology Report Case: [id number] Authorizing Provider: Linda Main MD Collected: 08/03/2021 12:00 AM Ordering Location: [facility] Received: 08/04/2021 01:12 PM Pathologist: Nathaly Kemp MD Specimen: Skin, mid back 3:52 PM PICK UP TRUCK DRIVER DERMATOPATHOLOGY LABORATORY Final Diagnosis Specimen A. SKIN, mid back: COMPOUND NEVUS WITH CONGENITAL FEATURES (D22.5) 3:52 PM PICK UP TRUCK DRIVER DERMATOPATHOLOGY LABORATORY Clinical History Irregular border, irregular color, brown papule R/O nevus vs melanoma. 3:52 PM [facility] [[email or web address]] DERMATOPATHOLOGY LABORATORY Gross Description Specimen A: Received is one formalin filled container labeled with the patient's name and designated mid back. The specimen consists of a shave measuring [id number]. Jar 0. 3:52 PM [facility] [[email or web address]] DERMATOPATHOLOGY LABORATORY Microscopic Description Specimen A. SKIN, mid back: There are nests of melanocytes at the dermal-epidermal junction and within the dermis. Some melanocytes are splayed between collagen bundles and are localized around adnexal structures. 3:52 PM [facility] [[email or web address]] DERMATOPATHOLOGY LABORATORY Disclaimer An external and internal positive and negative controls are appropriate for the histochemical, immunohistochemical and immunofluorescence stain(s) in this case (if any), except where stated explicitly. The performance characteristics of the stain(s) cited in this report were developed and its performance characteristic determined by the Dermatopathology Laboratory at [facility], directed by Dr. Tino Kemp. These tests need not be, and therefore are not, approved by the [place] Food and Drug Administration. The tests are used for clinical purposes. Billing Codes Specimen Charges Stain Charges 22063 1 3:52 PM PICK UP TRUCK DRIVER DERMATOPATHOLOGY LABORATORY Embedded Images 3:52 PM [facility] [[email or web address]] DERMATOPATHOLOGY LABORATORY Pathology/Cytolog y TISSUE SPECIMEN FROM SKIN / Unknown 08/03/2021 08/04/2021 1:12 PM PICK UP TRUCK DRIVER Linda Main MD LAB - PATHOLOGY/CYTO LOGY ORDERABLES DERMATOPATHOLOGY LABORATORY [facility] - Department of Dermatology [facility] Specialized Medicine [address] [place] [address], [address] [phone] Care Teams Scrubber System Attendant Relationship Specialty Start Date End Date Carroll Killian MD [address] [place] [address] PCP - General 12/19/16
--- OUTSIDE RECORDS SUMMARY | 2024-11-10 18:14 | XMS_ITS | Clinical Summary ---
Author [place] [facility] [place] [address] [facility] Address [address] [place] [address] Care Team Providers Care Insulation Board Head Saw Operator Name Role Phone Carolyn Ellis NP Primary Care Provider [phone] Allergies Active Allergy Reactions Criticality Noted Date [...] 10/05/2023 Assessment & Plan (10/05/2023 8:53 AM BI DATA MODELER): VSS, NAD, lungs ctab Hx of recurrent [...] on file Legal Sex Female 8:08 AM BI DATA MODELER Gender Identity Not on file Sexual Orientation Not on file Obstetrics History Last Filed Vital Signs Vital Sign Reading Time Taken Comments Blood Pressure 96/58 10/29/2023 7:32 PM BI DATA MODELER Pulse 101 10/29/2023 7:43 PM BI DATA MODELER Temperature 38 C (100.4 F) 10/29/2023 7:32 PM BI DATA MODELER Respiratory Rate 20 10/29/2023 7:32 PM BI DATA MODELER Oxygen Saturation 97% 10/29/2023 7:43 PM BI DATA MODELER Inhaled Oxygen Concentration - - Weight 56.7 kg (125 lb) 10/29/2023 7:32 PM BI DATA MODELER Height 165.1 cm (5' 5 ) 10/29/2023 7:32 PM BI DATA MODELER Body Mass Index 20.8 10/29/2023 7:32 PM BI DATA MODELER Plan of Treatment Health Maintenance Due Date Last Done Comments Breast Cancer Screening-Mammogram 1981 Cervical Cancer Screening 1981 Depression Screening 1981 Hepatitis C Screening 1981 DTaP/Tdap/Td Vaccine (1 - Tdap) 1992 Varicella Vaccines (1 of 2 - 13+ 2-dose series) 1994 Hepatitis B Screening 1999 Regular Well Visit/Exam 18-64 1999 Covid-19 Vaccine (2023- season) 2024 11/20/2020, 10/23/2020 Influenza Vaccine (#1) 2024 , 06/15/2020, 06/27/2019, Additional history exists HPV Vaccines Aged Out No longer eligi ble based on patient's age to complete this topic Pneumococcal vaccine <65 Aged Out No longer eligible based on patient's age to complete this topic Insurance [employer] [facility] Care Teams Insulation Board Head Saw Operator Relationship Specialty Start Date End Date Carolyn Ellis NP PCP - General Nurse Practitioner 10/05/23
== END 2024-11-10 15:35 | disposition home or self-care (01) ==
LOC: ANHIMG 15:35
PROVIDERS: PCP Family Medicine; Visit Provider Obstetrics & Gynecology
DX: Z12.31 Encounter for screening mammogram for malignant neoplasm of breast (principal)
CPT/HCPCS: 77063; 77067